=== PATIENT | male | born 1990 | race Caucasian/White ===

== ENCOUNTER 2016-12-20 08:41 | Emergency (ER) | payer OTHER ==
[~2016-12-20] VITALS: Ht 185.4 cm; Wt 74.8 kg
[2016-12-20 08:41] VITALS: BP 125/76
== END 2016-12-20 09:24 | disposition home or self-care (01) ==
LOC: ER 08:52
DX: J02.9 Acute pharyngitis, unspecified (principal)
CPT/HCPCS: 99283; A4606; Z7610

== ENCOUNTER 2021-04-29 16:58 | Emergency (ER) | payer OTHER ==
[~2021-04-29] VITALS: Ht 185.4 cm; Wt 74.8 kg
[2021-04-29 17:14] VITALS: BP 137/77
--- NOTE | 2021-04-29 17:17 | NUR ---
PT SEEN AND EXAMINED BY DANIELLE GARCIA.
--- NOTE | 2021-04-29 18:05 | NUR ---
TANIA WRAP APPLIED TO THE L ELBOW.
--- NOTE | 2021-04-29 18:10 | NUR ---
Patient discharged to home in stable condition. Written and verbal after care instructions given. Patient verbalizes understanding of instruction.
== END 2021-04-29 18:11 | disposition home or self-care (01) ==
LOC: ER 17:12
DX: M25.522 Pain in left elbow (principal); Z60.2 Problems related to living alone; V00.131A Fall from skateboard, initial encounter; Y93.51 Activity, roller skating (inline) and skateboarding; Y92.331 Roller skating rink as the place of occurrence of the external cause; Y99.8 Other external cause status
CPT/HCPCS: 73080-TC